=== PATIENT | male | born 1950 | race Caucasian/White ===

== ENCOUNTER 2016-08-22 12:06 | Observation (INO) | payer OTHER ==
[~2016-08-22] VITALS: Ht 172.7 cm; Wt 61.6 kg
[2016-08-22] VITALS (7 sets, daily range): BP systolic 111–132; BP diastolic 57–76; PULSE 62–73; RESP 16–20; O2SAT 97–100
[~2016-08-22 12:06] MED LIST: FLUO20CA25 PO; ROB500 PO; SILD100T PO; TRAM50TA2 PO; ZOLP12.547 PO
--- NOTE | 2016-08-22 12:36 | ED.REPORT ---
HPI-General Illness Date of Service Aug 22, 2016 ED Provider: History of Present Illness: 66-year-old male here sent in by his work, [employer] in [place], for a fit for duty exam. According to the patient a few days ago he was sent to his PCP to make sure he was okay to work. HE is not sure what is prompting his employer to do this. He presents today for this evaluation. He has vague complaints of epigastric/chest pain he says is not bothering him now. He does not complain of any pain right now. In fact he has no complaints right now. He has trouble telling me why he is here in general. He seems very confused. He does not know the names of certain body parts. He does not know the year otherwise A and O 2. He denies drug, alcohol use. He is a nonsmoker although he did smoke for 10 years many many years ago. He lives alone. Denies nausea vomiting diarrhea dysuria. His only medical history is acid reflux symptoms only medication is ranitidine. Upon my exam he is confused on certain subjects PCP Dr. Koroma Nursing Notes Stated Complaint: TESTS Chief Complaint: General Complaint Nursing Notes Reviewed: Yes Allergies: Coded Allergies: No Known Drug Allergies (Verified Allergy, Unknown, 08/22/16) Scheduled Fluoxetine (Fluoxetine) 20 Mg Capsule 20 MG PO DAILY Fluoxetine (Prozac) 10 Mg Capsule 10 MG PO DAILY Scheduled PRN Zolpidem ER (Zolpidem ER) 12.5 Mg Tablet 12.5 MG PO HS PRN PRN For Insomnia Miscellaneous Medications Ranitidine (Ranitidine) 300 Mg Tablet General Time Seen by MD: 12:36 Chief Complaint Other (confusion) Hx Obtained From: Patient Unable to Obtain Hx: Patient condition Arrived By: Walk-in Sudden in Onset?: No Onset Occurred: Onset unknown Symptom Duration: Duration unknown Recent Healthcare: No recent doctor visit Similar Sx Previous: No Past Medical History Past Medical History Notes: acid reflux Smoking History Former Smoker Review of Systems Patient denies complaints at this time, he seems quite confused He states he sometimes has an cessation which she cannot describe. He points to his lower chest/epigastric area when he says this. Unable to Obtain ROS Patient condition Full Review of Systems Cardiovascular: Reports: Chest pain Complete sys rev & neg: except as marked. Physical Exam Vital Signs Vital Signs Date Time Temp Pulse Resp B/P Pulse Ox O2 Delivery O2 Flow Rate FiO2 08/22/16 13:45 64 20 115/57 97 Room Air 08/22/16 12:12 35.9 71 18 118/68 99 Room Air Initial VS: Reviewed General/Constitutional: Well-developed, Well-nourished Head / Eyes: Atraumatic, Normocephalic, PERRL ENT: Mucous membranes moist, Conjunctiva normal, No scleral icterus Neck: Supple, Non-tender Respiratory: Breath sounds normal, Clear to auscultation, No respiratory distress Cardiovascular: Regular rate & rhythm, Heart sounds normal, Intact distal pulses Abdomen / GI: Soft, Non-tender, No guarding, No rebound, No distention Lymphatic: No lymphadenopathy Extremities: Vascular intact, Neuro intact, No swelling, No tenderness Skin: Warm, Dry, No cyanosis Neurologic: Alert, Oriented, Nonfocal Psychiatric: Mood/affect normal Neurologic: No motor deficits, No sensory deficits, CN II - XII intact, Reflexes equal bilat, Cerebellar NL, Gait NL Mental Status: Positive: Confused, Disoriented to time Psychiatric: Affect NL, Mood NL, Not suicidal, Not homicidal, No hallucinations Abnormal Thinking / Perception: Positive: Confused Interpretation & Diagnostics Interpretation & Diagnostics: CXR- IMPRESSION: No pneumonia found. IMPRESSION: Normal for age, source of confusion is not seen. Lab Results Interpretation Result Diagram: 08/22/16 1250 08/22/16 1250 Test 08/22/16 12:50 08/22/16 14:42 08/22/16 15:05 08/22/16 16:35 White Blood Count 4.7th/mm3 (3.8-10.1) Red Blood Count 4.82mil/mm3 (4.40-5.80) Hemoglobin 14.6g/dL (13.8-17.2) Hematocrit 42.9% (41.0-50.0) Mean Corpuscular Volume 89.0fL (81-100) Mean Corpuscular Hemoglobin 30.3pg (27.0-35.0) Mean Corpuscular Hemoglobin Concent 34.0% (32.0-37.0) Red Cell Distribution Width 12.8% (12.3-15.4) Platelet Count 264bil/L (150-400) Neutrophils (%) (Auto) 56.4% (40-74) Lymphocytes (%) (Auto) 30.7% (14-46) Monocytes (%) (Auto) 10.2% (4-12) Eosinophils (%) (Auto) 1.5% (0-5) Basophils (%) (Auto) 0.8% (0-3) Erythrocyte Sedimentation Rate 2mm/hr (0-30) Prothrombin Time 10.7sec (8.1-12.5) Prothromb Time International Ratio 1.00ratio Sodium Level 141mEq/L (134-144) Potassium Level 4.4mEq/L (3.5-5.2) Chloride Level 105mEq/L (97-108) Carbon Dioxide Level 24mmol/L (18-29) Blood Urea Nitrogen 15mg/dL (8-27) Creatinine 0.77mg/dL (0.76-1.27) Estimat Glomerular Filtration Rate 108mL/min (>59) Glucose Level 90mg/dL (60-99) Calcium Level 8.8mg/dL (8.5-10.1) Magnesium Level 2.2mg/dL (1.6-2.6) Total Bilirubin 0.7mg/dL (0.0-1.2) Aspartate Amino Transf (AST/SGOT) 12U/L (0-50) Alanine Aminotransferase (ALT/SGPT) 6U/L (0-44) Alkaline Phosphatase 67U/L (25-160) Troponin T < 0.010ug/L (0.0-0.011) Total Protein 6.3g/dL (6.4-8.4) Albumin 4.1g/dL (3.4-5.0) Triglycerides Level 105mg/dL (0-149) Cholesterol Level 222mg/dL (100-199) LDL Cholesterol, Calculated 134.000mg/dL (0-99) VLDL Cholesterol 21.000mg/dL HDL Cholesterol 67mg/dL (>39) Cholesterol/HDL Ratio 3.31 (0.0-4.4) Thyroid Stimulating Hormone (TSH) 1.890uIU/mL (0.450-4.500) Free Thyroxine 1.05ng/dL (0.82-1.77) Hold Amador Top Tube Received (Received) Alcohol, Quantitative < 10mg/dL (0-10) Urine Color Yellow (YELLOW) Urine Appearance Hazy (CLEAR,HAZY) Urine pH 5.5 (5.0-8.0) Urine Specific [place] 1.030 (1.003-1.035) Urine Protein Negativemg/dL (NEG,TRACE) Urine Glucose (UA) Negativemg/dL (NEGATIVE) Urine Ketones Tracemg/dL (NEGATIVE) Urine Occult Blood Negative (NEGATIVE) Urine Nitrite Negative (NEGATIVE) Urine Bilirubin Negative (NEGATIVE) Urine Urobilinogen Normalmg/dL (NORMAL) Urine Leukocyte Esterase Negative (NEGATIVE) Urine RBC 0-2/hpf (0-2) Urine WBC 0-5/hpf (0-5) Urine Epithelial Cells Occasional/hpf (NONE-MOD) Urine Crystals None seen (NONE SEEN) Urine Bacteria Few/hpf (NONE-FEW) Urine Hyaline Casts None/lpf (NONE) Urine Granular Casts None seen (NONE SEEN) Urine Waxy Casts None seen (NONE SEEN) Urine Red Blood Cell Casts None seen (NONE SEEN) Urine White Blood Cell Casts None seen (NONE SEEN) Urine Mucus Few (None Seen) Urine Trichomonas None seen (NONE SEEN) Urine Yeast None (NONE SEEN) Urinalysis Comment None Urine Culture Reflexed Not indicated Ammonia 18ug/dL (18-53) Re-Eval/Medical Decision Med Decision/Clinical Course 05/2015 PCP Pendergrast ordered chest xray (normal) for 20lb weight loss. 03/2016 negative colonoscopy ekg NSR, no previous pt resting comfortably in bed in NAD called ex . she states that he is not normally confused. he will get confused if he doesn't sleep, he works nights and will get insomnia sometimes. He claims he has been sleeping well, takes prescribed dose of ambien called his work, [employer], katherin parham in [place] states that in the last week, onset 08/12/16 that he has been confused/signs of dementia/possibly hallucinating. on admin leave since then 1500- dr Littlejohn consulted/assessed pt. agrees pt confused with no known cause of confusion. will admit for obs 1509- Dr Story accepts admission discussed admission with pt. pt seems reluctant to stay but not fighting admit at this time. Discharge & Departure Shift Change Sign-Out Patient Care Transferred: Yes Discussed Complaint(s): Yes Laboratory Evaluation: Lab evaluation discussed Imaging Studies: Imaging discussed Procedures: Results discussed Primary Impression: Altered mental status Altered mental status type: unspecified Qualified Code: R41.82 - Altered mental status, unspecified Disposition: ADMITTED TO HOSPITAL Discharge Condition All VS Reviewed: Yes Condition: Stable Referrals: Leatha Gray (PCP) EDSupervising Provider for APC: Fernando Quach DO copies to: Candis Story MD; Fernando Quach Linnea K ARNP Aug 22, 2016 12:36
[2016-08-22 13:07] LABS: BASOPHILS % (AUTO) 0.8 % (0-3); EOSINOPHILS % (AUTO) 1.5 % (0-5); MONOCYTES % (AUTO) 10.2 % (4-12); Mean Corpuscular Hemoglobin 30.3 pg (27.0-35.0); NEUTROPHILS % (AUTO) 56.4 % (40-74); Platelet Count 264 bil/L (150-400)
[2016-08-22 13:33] LABS: TROPONIN T < 0.010 ug/L (0.0-0.011)
--- NOTE | 2016-08-22 13:39 | DRSVH ---
PROCEDURE: CT BRAIN WITHOUT CONTRAST ([id number]) INDICATIONS: CONFUSION TECHNIQUE: Noncontrast 4.5 mm thick angled axial sections acquired from the foramen magnum to the vertex, with c oronal reformats. COMPARISON: None. FINDINGS: Image quality: Excellent. CSF spaces: Basal cisterns are patent. No extra-axial fluid collections. Ventricles are normal in size and shape. Brain: No midline shift. No intracranial masses or hemorrhage. Lockhart-white matter interface is norm al. Skull and face: Calvarium and visualized facial bones are intact, without suspicious lesions. Sinuses: Visualized sinuses and mastoids are clear. IMPRESSION: Normal for age, source of confusion is not seen. Dictated by: Say Tovar M.D. on 08/22/2016 at 13:37 Approved by: Say Tovar M.D. on 08/22/2016 at 13:38
[2016-08-22 13:41] LABS: Magnesium 2.2 mg/dL (1.6-2.6)
[2016-08-22 14:55] LABS: APPEARANCE,URINE HAZY (CLEAR,HAZY); COLOR,URINE YELLOW (YELLOW); OCCULT BLOOD,URINE NEGATIVE (NEGATIVE); PH,URINE 5.5 (5.0-8.0)
[2016-08-22 14:57] LABS: UROBILINOGEN,URINE NORMAL (NORMAL)
--- NOTE | 2016-08-22 14:59 | DRSVH ---
PROCEDURE: X-RAY CHEST ONE VIEW, PORTABLE ([id number]) INDICATIONS: chest pain TECHNIQUE: One view of the chest was acquired. COMPARISON: [facility], CR, XR CHEST 2VW, 05/28/2015, 15:53. [facility], C R, CHEST 2VW, 04/28/2008, 20:02. FINDINGS: Surgical changes and devices: None. Lungs and pleura: No pleural effusions or pneumothorax. Lungs are clear. Mediastinum: Mediastinal contours appear normal. Heart size is normal. Bones and chest wall: No suspicious bony lesions. Overlying soft tissues appear unremarkable. IMPRESSION: No pneumonia found. Dictated by: Say Tovar M.D. on 08/22/2016 at 14:57 Approved by: Say Tovar M.D. on 08/22/2016 at 14:58
[2016-08-22] MEDS ORDERED: Alum-Mag Hydrox-Simeth 30 mL Suspension PO PRN (15:50)
[2016-08-22] MEDS ORDERED: Polyethylene Glycol (PEG) 17 Gm Powder PO PRN (15:50)
[2016-08-22] MEDS ORDERED: Ondansetron 2 mg/mL 2 mL Inj IV PRN (15:50)
--- NOTE | 2016-08-22 16:08 | PCM.HPMED ---
Subjective Date of Service Aug 22, 2016 Primary Provider: Admitting Physician: Primary Care Physician: Leatha Gray Attending Physician: Admit Status: From the Emergency Department, 23-Hour Observation, Remote Telemetry Chief Complaint: Altered mental status History of Present Illness: This 66-year-old male who was sent to the emergency room by his work as he has been noted to have over the past 2 weeks or so using confusion. He denies any alcohol or drug use. He does live alone ex- was notified by ER Angelina and did say that this is something that is new and different for him. Denies any nausea vomiting abdominal pain alteration in bowel movements. His any headaches. Denies any recent head injuries. He is alert but oriented 2 only- to person and place but not year. 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 He notes that he drives there regularly for work. His evaluation in the emergency room include CT of head without contrast is not reveal any acute abnormalities. When asked what medications he takes he does take Ambien and actually does know the name without any coaxing by me of zolpidem. His alcohol level here is less than 10 and urine drug screen is negative. Urine dip is also negative. He has had no fevers chills. Denies cough or chest pain. Patient also denies having seen his primary care provider Dr. Gray regarding this issue. Review of Systems: All other review of systems are reviewed and are negative except for as in history of present illness. He denies having similar problem in the past. He also seems to not be very cognizant about these episodes of confusion and why we are so concerned regarding his functionality. Allergies Coded Allergies: No Known Drug Allergies (Verified Allergy, Unknown, 08/22/16) Home Medications Viagra 100 mg by mouth when necessary sexual activity Tramadol by mouth at at bedtime when necessary pain Zolpidem CR 12.5 mg by mouth at at bedtime when necessary insomnia. Methocarbamol 500 mg by mouth when necessary muscle spasm PMH History of GERD Family History Denies any family medical history for neurological diseases or psychiatric diseases Social History Hx Alcohol Use: No Smoking Status: Former Smoker Living Arrangement: Alone Exam Vital Signs Vital Sign - Last Date Time Temp Pulse Resp B/P Pulse Ox O2 Delivery O2 Flow Rate FiO2 2/10/17 12:12 35.9 71 18 118/68 99 Room Air Exam Constitutional: Slightly disheveled man in no acute distress Head: Normocephalic atraumatic Eyes: PERRLA DC EOMI Mouth: No particular abnormal lesions although dentition is not optimal Neck: Carotids 2+ over 4 without bruits Chest: Clear to auscultation Heart: Regular rate and rhythm S1-S2 without murmur Abdomen: Soft nontender bowel sounds present Extremities: No pedal edema Skin: No rashes Psychiatric: Mood and affect appear appropriate Neuro: Alert and oriented to person and place but not year. Finger to nose is intact motor and sensory are intact bilaterally Lab and Diagnostics Result Diagram: 08/22/16 1250 08/22/16 1250 X-Rays, CTs and MRIs PROCEDURE: CT BRAIN WITHOUT CONTRAST ([id number]) INDICATIONS: CONFUSION TECHNIQUE: Noncontrast 4.5 mm thick angled axial sections acquired from the foramen magnum to the vertex, with coronal reformats. COMPARISON: None. FINDINGS: Image quality: Excellent. CSF spaces: Basal cisterns are patent. No extra-axial fluid collections. Ventricles are normal in size and shape. Brain: No midline shift. No intracranial masses or hemorrhage. Lockhart-white matter interface is normal. Skull and face: Calvarium and visualized facial bones are intact, without suspicious lesions. Sinuses: Visualized sinuses and mastoids are clear. IMPRESSION: Normal for age, source of confusion is not seen. Dictated by: Say Tovar M.D. on 08/22/2016 at 13:37 Approved by: Say Tovar M.D. on 08/22/2016 at 13:38 PROCEDURE: X-RAY CHEST ONE VIEW, PORTABLE ([id number]) INDICATIONS: chest pain TECHNIQUE: One view of the chest was acquired. COMPARISON: [facility], CR, XR CHEST 2VW, 05/28/2015, 15:53. [facility], CR, CHEST 2VW, 04/28/2008, 20:02. FINDINGS: Surgical changes and devices: None. Lungs and pleura: No pleural effusions or pneumothorax. Lungs are clear. Mediastinum: Mediastinal contours appear normal. Heart size is normal. Bones and chest wall: No suspicious bony lesions. Overlying soft tissues appear unremarkable. IMPRESSION: No pneumonia found. 12-lead ECG I am unable to locate EKG at this time but according to ERs note EKG was normal sinus rhythm without any acute abnormalities Assessment & Plan # Subacute encephalopathy, present on admission Unclear etiology so far evaluation is negative Neuro proceed with checking CT of head and neck and MRI of brain without contrast Check transthoracic echocardiogram Place on telemetry Also proceed with checking TSH, T4, vitamin B12, folate, RPR, sedimentation rate Also initiate thiamine 100 mg by mouth daily # DVT prophylaxis We will place on subcutaneous Lovenox of lactic # CODE STATUS Full code Resuscitation Status: CPR: Attempt Resuscitation Time spent 60 minutes Candis Story MD Aug 22, 2016 16:08
--- NOTE | 2016-08-22 17:00 | NUR ---
Admit Pt comes via WC. IV Lt AC. Denies CP, SOB, Nausea. Some confusion noted. Must repeat questions a few times in order for pt to obey commands. Alert to self and that we are in a hospital. Otherwise difficulty answering questions. Ex is present in room. States that he is [place] and at times will state confusing things not hearing what you have said. asking pt questions at this time and pt has difficulty answering most of time.
[2016-08-22] MEDS ORDERED: RANI300T4 (17:31)
[2016-08-22] MEDS ORDERED: ZOLP6.2525 (18:24)
[2016-08-22] MEDS ORDERED: FLUO10CA30 PO (18:25)
--- NOTE | 2016-08-22 18:36 | NUR ---
Friend comments Ex / Friend was at bedside talking with pt. She states that the pt is very [place] and many times will try and guess what you said and answer accordingly; thus making people assume he is confused. Although friend did mention that he is more disoriented than his typical. She stated that he does have some slight baseline forgetfulness and small bouts of confusion when he gets tired and has for a long time now. Care continues
--- NOTE | 2016-08-22 18:43 | NUR ---
Medications Pt able to state a few of his medications but unreliable considering he is confused. Pt does states that he is supposed to be on Prozac but has stopped taking it recently. Cant recall the last time he took it but stated that he understood he needed to get off of the medication slowly and under MD supervision. Care continues
--- NOTE | 2016-08-23 02:13 | NUR ---
Neuros A&O to person and place but not time.Responses delayed and word searching noted.Cooperative and pleasant with care and no physical deficits noted.Gait steady and ambulates w/o difficulty.VSS.Denies pain.Sleeping soundly at this time and resting comfortably.Will cont. to monitor.
[2016-08-23 04:24] VITALS: BP 116/69; PULSE 66; RESP 16; O2SAT 97
[2016-08-23 05:12] VITALS: PULSE 63
[2016-08-23 07:09] LABS: Hemoglobin A1C 5.4 % (4.8-5.6)
[2016-08-23 08:38] VITALS: PULSE 75
[2016-08-23 09:45] VITALS: BP 112/68; PULSE 70; RESP 16; O2SAT 97
[2016-08-23 13:57] VITALS: BP 108/69; PULSE 57; RESP 18; O2SAT 95
--- NOTE | 2016-08-23 14:00 | NUR ---
MRI Pt taken via WC to MRI. SL Left AC. Pt understands that he is being taken to MRI. when asked if he had had an MRI in the past he said "Yes where they lay you on the table and slide you into the loud machine?" Pt continues to have periods of forgetfulness but is easily redirected. Care continues
--- NOTE | 2016-08-23 14:11 | PCM.PNMED ---
Subjective Date of Service Aug 23, 2016 Subjective Patient has mild difficulty of hearing, however, alert, oriented to himself, place, time although pt couldn't explain exactly why he came to hospital, Patient was fluent but not coherent to questions, denied SI/HI, any paranoid ideas. pt is not aware of his medical condition, denied any psychiatric illness Exam Vital Signs Vital Sign - Last Date Time Temp Pulse Resp B/P Pulse Ox O2 Delivery O2 Flow Rate FiO2 08/23/16 09:45 36.7 70 16 112/68 97 Room Air Intake and Output 08/22/16 08/22/16 08/23/16 Cumulative From/Thru 15:00 23:00 07:00 08/22/16 12:12 - 08/23/16 06:42 Intake Total 100 ml 100 ml Output Total 220 ml 220 ml Balance -120 ml -120 ml Intake Oral 100 ml 100 ml Output Urine Total 220 ml 220 ml # Bowel Movements 0 0 Exam NAD, comfortably laying down on the bed no JVD, MMM, no LAD RRR, nl s1, s2 no mrg CTAB, no w,c S,ND,NT,normoactive BS+ warm, no edema, pulses 2/2 Neuro: AAOx3 gait steady PERRLA, EOMI, symmetric face, no uvulae tongue deviation, able shrug shoulders equally able rotate neck equally on both sides FTN, dysdiadochokinesia intact, romberg negative, no pronator drift motor 5/5 throughout, sensory intact to dull touch IVs and Medications Medications Reviewed: Medications were reviewed in detail Lab and Diagnostics Result Diagram: 08/22/16 1250 08/22/16 1250 X-Rays, CTs and MRIs PROCEDURE: CT BRAIN WITHOUT CONTRAST ([id number]) INDICATIONS: CONFUSION TECHNIQUE: Noncontrast 4.5 mm thick angled axial sections acquired from the foramen magnum to the vertex, with coronal reformats. COMPARISON: None. FINDINGS: Image quality: Excellent. CSF spaces: Basal cisterns are patent. No extra-axial fluid collections. Ventricles are normal in size and shape. Brain: No midline shift. No intracranial masses or hemorrhage. Lockhart-white matter interface is normal. Skull and face: Calvarium and visualized facial bones are intact, without suspicious lesions. Sinuses: Visualized sinuses and mastoids are clear. IMPRESSION: Normal for age, source of confusion is not seen. Dictated by: Say Tovar M.D. on 08/22/2016 at 13:37 Approved by: Say Tovar M.D. on 08/22/2016 at 13:38 PROCEDURE: X-RAY CHEST ONE VIEW, PORTABLE ([id number]) INDICATIONS: chest pain TECHNIQUE: One view of the chest was acquired. COMPARISON: [facility], CR, XR CHEST 2VW, 05/28/2015, 15:53. [facility], CR, CHEST 2VW, 04/28/2008, 20:02. FINDINGS: Surgical changes and devices: None. Lungs and pleura: No pleural effusions or pneumothorax. Lungs are clear. Mediastinum: Mediastinal contours appear normal. Heart size is normal. Bones and chest wall: No suspicious bony lesions. Overlying soft tissues appear unremarkable. IMPRESSION: No pneumonia found. 12-lead ECG I am unable to locate EKG at this time but according to ERs note EKG was normal sinus rhythm without any acute abnormalities Assessment & Plan 66yo M w/ no significant medical problem presented with subacute onset of worsening confusion. 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 pt stated he first went to the clinic but redirected him to ED. as per ex-, pt was on detention antipsychotic prozac over 30yrs for depression/anxiety, prior heavy drinker 30yrs ago. pt has significant Fhx of advanced Alzheimer disease both parents currently, in the state that they don't recognizing him. upon reviewing, clinic chart,as per PCP LEI Duggan, spoke to supervisor shipping Deandre at his work place, pt showed confusion, disorientation, hallucination, so he concerned about his health and safety of people at work, sent him to PCP for further evaluation. PCP thinks that this is not his baseline, redirected him to ED although pt didn't seem to understand this. #Encephalopathy, POA, TSH/RPR/vitB12 WNL, CTH normal for age, neurologically intact, ddx: worsening dementia vs psychiatric disease. -consulted today, appreciate insignt -will finish MRI brain today -no further invasive w/u such as LP given no acuity. # DVT prophylaxis We will place on subcutaneous Lovenox of lactic # CODE STATUS Full code dispo:it seems there is no acuity of current presentation, likely d/c home today or tomorrow with good PCP/psychiatric eval VTE Mechanical Devices: Intermittant Pneumatic CD Resuscitation Status: CPR: Attempt Resuscitation Time spent 35 minutes Kristi Gómez MD Aug 23, 2016 12:11
--- NOTE | 2016-08-23 14:35 | DRSVH ---
[facility] [address] [place] [address] Echocardiogram Report Name: LADARIUS FERRO te: 08/23/2016 Height: 68 in Hospital Exam Location: [facility] Weight: 136 lb Gender: Male BSA: 1.7 m2 : 1950 Age: 66 yrs BP: 116/69 mmHg Reason For Study: Stroke Ordering Physician: HOSPITALIST [facility] Performed By: Pedro Culp Referring Physician: FABRICE HARP Interpretation Summary 1) Normal left ventricular size, wall motion, and systolic function (EF 65- 70%). 2) Normal right ventricular size and function. 3) No significant valvular abnormalities. 4) No prior Echo available for comparison. No cardiac cause of stroke identified on this transthoracic echo. Procedure: A two-dimensional transthoracic echocardiogram with color flow and Doppler was performed. The study quality was technically adequate. There is no prior echocardiogram noted for this patient. The patient was in normal sinus rhythm during the exam. Left Ventricle: The left ventricle is normal in size. Left ventricular wall thickness is at the upper limits of normal. The ejection fraction is estimated to be 65-70%. Left ventricular systolic function is normal. Left ventricular wall motion is normal. Assessment of diastolic parameters indicates normal left ventricular diastolic function and normal filling pressures. Right Ventricle: The right ventricle is normal in size, thickness and function. Atria: Both atria are normal in size. The interatrial septum is intact with no evidence for an atrial septal defect. Mitral Valve: The mitral valve is normal. There is no mitral regurgitation noted. Aortic Valve: The aortic valve is normal in structure and function. There is no aortic valve stenosis. No aortic regurgitation is present. Tricuspid Valve: The tricuspid valve is normal. Pulmonary artery pressures cannot be estimated because of the lack of a measurable TR jet velocity. Pulmonic Valve: The pulmonic valve is not well visualized. Great Vessels: The aortic root is normal size. The ascending aorta could not be visualized. The pulmonary artery is not well visualized, but is probably normal size. The IVC is of normal diameter and collapses greater than 50% with a sniff. This suggests a low right atrial pressure of 3 mm Hg. Pericardium/ Pleura There is no pericardial effusion. There is no pleural effusion. MMode/2D Measurements & Calculations LVIDd: 3.9 cm RA long axis LVOT diam LVIDs: 2.6 cm LA A2 area: 12.0 cm FS: 33.5 % LA A4 area: 14.2 cm RA area Ao root diam IVSd: 1.1 cm LA length (vol): 4.5 cm : 3.2 cm LVPWd: 0.97 cm LA vol: 32.1 ml : 12.4 cm LA vol index RA vol: 27.2 ml RA : 15.7 mm2 IVC diam: 1.7 cm LV rutherford. diameter/BSA LV sys. diameter/BSA RVD1 (basal) TAPSE: 2.5 cm (cm/m^2): 2.2 (cm/m^2): 1.5 Doppler Measurements & Calculations Ao V2 max: 118.9 cm/secMV E max jose miguel MV E/A: 1.4 PA V2 max Ao max P.7 mmHg : 64.4 cm/sec Med Peak E' Jose Miguel : 88.9 cm/sec Ao mean P.0 mmHg MV A max jose miguel PA mean PG LVOT Max Jose Miguel : 45.4 cm/sec E/E' med: 7.6 : 1.7 mmHg : 85.8 cm/sec Lat Peak E' Jose Miguel MEENU(I,D): 3.6 cm E/E' lat: 6.6 sev ratio: 0.80 E/e' average: 7.1 MV dec time: 0.21 sec Ao V2 mean LV V1 max PG PA V2 mean : 80.9 cm/sec : 62.1 cm/sec Ao V2 VTI: 22.4 cmLV V1 VTI: 17.9 cm PA pr(Accel) : 5.8 mmHg MEENU(V,D): 3.2 cm2 MEENU indexed to BSA (cm^2/m^2): 2.1 Reading Physician:02:34 PM
--- NOTE | 2016-08-23 15:02 | NUR ---
Cognition No strength deficits noted. When speaking loudly so that pt can hear pt easily answers questions but does have a slight delay and word searching in answers. Pt has been alert and oriented mostly. Has issues stating the month at times but is able to states self, place, situation, year. Pt states that he does have some disorientation at times. Pt also told recreational therapy technician at bedside after the doctor left the room that "I couldn't understand what that doctor was saying?" Language barrier may be an issue here as well. Manager In Home did note that pt attempted to void in garbage but was easily redirected to toilet once. She also seemed to have to remind pt to use restroom and to drink water. Manager In Home no longer at bedside; pt emily alarm in place. Ambulated with steady gait independently but is fall risk related to confusion. Care continues. Pt remains in MRI at this time.
--- NOTE | 2016-08-23 15:49 | DRSVH ---
PROCEDURE: MRI STROKE PROTOCOL ([id number]) Pre- and post-contrast brain MRI, non-contrast brain MR angiogram, pre- and postcontrast neck MR tricia ogram INDICATIONS: Enecephalopathy, unclear etiology TECHNIQUE: Brain: Noncontrast axial T1 spin echo, axial T2 fast spin echo, sagittal and axial FLAIR, coronal T2 fast spin echo, axial gradient echo, axial diffusion and ADC through the brain. After the administr ation of contrast, axial 3D VIBE of the cranial vasculature and brain. Brain MRA: Non-contrast 3-D time of flight MR angiogram, with multiple fpqkhxl-vpfzfvmml-vodlimpfap (MIP) reformats performed. Neck MRA: Axial and sagittal TruFISP through the neck. Coronal dynamic MR angiogram during administ ration of contrast in the arterial and venous phases, with 3-dimenstional uwuveei-ajumtnwhm-jcaczxlfu n (MIP) reformats constructed from subtraction images. COMPARISON: [facility], CT, CT BRAIN WO CON, 08/22/2016, 13:10. FINDINGS: Image quality: Excellent. BRAIN: CSF spaces: Ventricles are normal in size and shape. Basal cisterns are patent. No extra-axial flu id collections. Brain: No intracranial bleeds or mass effects. There is mild diffuse cerebral volume loss. Mild deg ree of patchy hilar signal within the periventricular and subcortical white matter, consistent with s mall vessel ischemic disease. Lockhart-white matter interface is normal. Diffusion weighted images show no acute ischemic insults. Brainstem appears normal. Normal intravascular flow voids are present. No abnormal intracranial enhancement. Skull and face: Calvarial marrow signal is normal. Orbits appear normal. Sinuses: Left mastoidectomy. Sinuses and mastoids are otherwise clear. BRAIN MR ANGIOGRAM: Anterior circulation: Intracranial internal carotid arteries are normal in size and enhancement. Th e flow within the paired anterior cerebral arteries is normal and symmetric. The flow within the mid dle cerebral arteries is normal and symmetric. The anterior communicating artery is seen. No stenos es, occlusions, or aneurysms. Posterior circulation: The visualized portions of the vertebral arteries demonstrate normal caliber, and join to form a normal appearing basilar artery. The flow within the posterior cerebral arteries is normal and symmetric. No stenoses, occlusions, or aneurysms. NECK MR ANGIOGRAM: Carotids: Great vessels demonstrate a conventional anatomy as they arise from the aortic arch. The origins of the common carotid arteries appear patent. The calibers and courses of both common caroti d arteries are normal. The bifurcation regions appear normal bilaterally. The internal carotid precious usama demonstrate normal course and caliber. Posterior circulation: The right vertebral artery origin is patent, and the left vertebral artery or igin is not well-seen. More superior portions of both vertebral arteries demonstrate normal course an d caliber, and join to form a normal appearing basilar artery. Miscellaneous: Subclavian arteries appear patent. Pre-contrast images through the neck show no soft tissue abnormalities. IMPRESSION: BRAIN MRI: 1. Mild volume loss and small vessel ischemic disease. 2. No acute process. No recent infarct. BRAIN MR ANGIOGRAM: Negative cerebral MR angiography. NECK MR ANGIOGRAM: 1. Patent bilateral internal carotid arteries. 2. Patent right vertebral artery. Suboptimally visualized left vertebral artery origin. Left vertebra l artery is otherwise patent. The estimate of stenosis included in the report of the imaging study was calculated using the NASCET method Dictated by: Chetan Cardenas M.D. on 08/23/2016 at 14:43 Approved by: Chetan Cardenas M.D. on 08/23/2016 at 14:47
--- NOTE | 2016-08-23 17:30 | NUR ---
miscommunication with pt and family some miscommunication with pt and family, friend, and MD. MD states pt was ok to discharge before he realized that pt was still having disorientation such as attempting to void in waste basket. Friend came to pick pt up but staff advocated for pt in regards to the fact that pt is not safe to go home to where he live alone. MD now would like pt to stay another night, suggested possible psych eval, and Social workers have not seen pt at this time either. Pt is now wanting to leave AMA but at this time is not cognitive enough to make safe choices for himself. MD suggest pt stay another night. Pt is upset about this. Friend Yadira has offered to take pt home tonight but pt will be left alone as she must go to work and is his exwife. Daughter Yeimi was called to update her in regards to situation. Yeimi was informed of new information and it was suggested that she and her brother come down tomorrow and meet with MD, SW, and Pt in order to decide a good safe plan for DC. Daughter Yeimi states that she will be here tomorrow (Thursday) to speak with MDs, SW, and father in order to figure out what is going on and devise a safe plan for DC. Daughter states that she will contact Son and attempt to arrange for him to come as well although this may not be possible. Care continues Addendum: 08/23/16 at 1837 by JAYASHREE LOCKETT RN Leo Jalloh spoke with pt and told him that we tols her that he tried to void in waste basket. Pt was very defensive about this and upset that we would say such a thing. Pt attempted to make a reason for what he did was was at a loss for words. Advised pt that it is ok, sometimes people misinterpret what is going on. Pt has now calmed down and has been appropriate in room. Bed alarm n use. Pt is impulsive at times and gets up out of bed with no goal. Pt understands the plan for tomorrow. Care continues
--- NOTE | 2016-08-23 18:37 | NUR ---
BEAVER Pt continues to be slightly disoriented, word searching and delayed answers today. Seems much more oriented than yesterday. Much of this seems to be a hearing deficit. If staff speaks very loudly and clearly pt seem more oriented than when staff talk quietly. Pt is very BEAVER in Left ear. Advised staff to speak into Right ear when talking and me where pt can read lips. Care continues
[2016-08-23 19:18] VITALS: BP 106/64; PULSE 74; RESP 18; O2SAT 98
--- NOTE | 2016-08-24 03:33 | NUR ---
LOC Patient continues to exhibit s/s of disorientation. Patient asleep for much of shift, however recently awoke to stand at foot of bed staring at wall. Nurses' aide able to coax back to bed. Alert to self, able to make needs known, easily redirected. Denies pain and or discomfort at this time. Sitter outside of room.
[2016-08-24 06:50] VITALS: BP 106/61; PULSE 78; RESP 16; O2SAT 96
--- NOTE | 2016-08-24 07:59 | PCM.DIMED ---
Discharge Instructions Date of Service Aug 24, 2016 Dates of Hospitalization Aug 22, 2016 at 16:36 Discharge Diagnosis Discharge Diagnosis Probable early dementia Patient Instructions You were hospitalized with concern of forgetfulness, hallucinations, disorientation from your family/people at your work place. All the workups in the hospital didn't suggest any organic causes that can explain your confusion. Please follow-up with your doctor in following week for assessment and treatment. Follow-up plan Please follow up with your doctor in following week. Follow-up Provider: Leatha Gray Follow-up with PCP in: 1 week Kristi Gómez MD Aug 24, 2016 07:59
--- NOTE | 2016-08-24 09:08 | NUR ---
Social Work Note: Continued Discharge Planning Data& Assessment: Per RN, pt family has concerns regarding pt mentation and medical condition. SW spoke with pt ex who confirmed pt daughter Yeimi will be arriving here at the hospital around 10:30-11:00am this morning. SW and pt family agreed on meeting in pt's room at 11:15am to discuss discharge planning and obtain clarification regarding pt medical status from MD per pt family request. SW confirmed with MD that he is able to meet with SW and pt family at 11:15am this morning. Per MD, pt is getting closer to being medically ready for discharge but could benefit from being seen by psych prior to discharge. SW confirmed with [facility] that they have received the order and verbal request from MD for pt to be seen today by psych. SW to follow up with MD, pt family, and psych regarding pt care and discharge planning. SW to continue to follow. Plan: Anticipated discharge home via POV when medically cleared for discharge. SW to follow up with MD, pt family, and psych regarding pt care and discharge planning. SW to continue to follow. BRANDEN Carballo
--- NOTE | 2016-08-24 12:04 | NUR ---
Social Work Note: Initial Assessment Data& Assessment: EMR reviewed. SW met with pt ex- and pt daughter at bedside to discuss discharge planning, SW role explained. Smith Downs is a 66 year old male under observation for altered mental status beginning on 08/22/2016. Pt has [employer] out of state insurance coverage. Pt sees LEI Sweeney for primary care. Pt daughter explained that pt does not have his hearing aids which could be contributing to ongoing confusion. Pt daughter provided baseline information. Pt lives in [place], alone in a one story home with three steps to enter the home. Pt drives and works at this time. Pt does not use any DME at baseline. Pt is independent with ADL's including medication management. Pt has never had Home Health services or been to a SNF. Pt does not have LTC insurance and does not have VA benefits. Pt and pt daughter provided with [employer] paperwork to complete and provide the hospital with a copy when possible. Per pt daughter request, pt was also provided with number for [facility] for assistance in signing up for Medicare insurance now that pt is 66 years of age. Pt was also provided with [facility] Community Resource Guide to reference in case that number is lost and for further community resource information. Per pt daughter, pt makes approximately $5,000 a month in pension and would be overqualified for Medicaid eligibility. Per pt daughter, pt is close to his baseline mentation and believes it is a difference in communication style and his lack of hearing aids that contributes to his confusion. However, Pt daughter and ex concerned that his employer has noticed a difference in mentation at this point in time. Per [facility], psych MD plans to see pt during lunch time to day prior to pt discharge. Pt daughter plans to take pt home tonight and stay until tomorrow. Pt ex plans to arrange follow up PCP appointment for pt and transport him to his appointment. Pt and pt daughter denies any other needs. No other needs identified. Plan: Per pt is medically ready for discharge home with daughter via POV pending psych evaluation. Pt provided with community resources. Pt ex plans to arrange follow up PCP appointment for pt and transport him to his appointment. Pt and pt daughter denies any other needs. No other needs identified. BRANDEN Carballo Addendum: 08/24/16 at 1220 by MING FANG Amended: Links added.
--- NOTE | 2016-08-24 14:00 | NUR ---
DC Pt discharged to home with daughter after Psych evaluation was completed. All discharge instructions have been reviewed and daughter understands. Daughter states that she understands that the pt is to NOT drive until medically cleared by his primary care provider or a neurologist. Daughter understands that pt is not safe if left alone. Per daughter she will be driving pt home and a friend will take him car away to someone else's house out of sight out of mind. Pt ambulates out of hospital independently with daughter at side. Daughter to take pt home and stay with pt.
--- NOTE | 2016-08-24 14:22 | PCM.DC.MED ---
Discharge Summary Date of Service Aug 24, 2016 Dates of Hospitalization Date of Hospital Admission Aug 22, 2016 at 16:36 Date of Discharge: Aug 24, 2016 Providers: Admitting Physician: Candis Story MD Primary Care Physician: Leatha Gray Attending Physician: Candis Story MD Diagnosis at Time of Discharge Diagnosis at Time of Discharge Probable early dementia Consultations Psychiatry, Procedures XRay, CTs & MRIs PROCEDURE: MRI STROKE PROTOCOL ([id number]) Pre- and post-contrast brain MRI, non-contrast brain MR angiogram, pre- and postcontrast neck MR angiogram INDICATIONS: Enecephalopathy, unclear etiology TECHNIQUE: Brain: Noncontrast axial T1 spin echo, axial T2 fast spin echo, sagittal and axial FLAIR, coronal T2 fast spin echo, axial gradient echo, axial diffusion and ADC through the brain. After the administration of contrast, axial 3D VIBE of the cranial vasculature and brain. Brain MRA: Non-contrast 3-D time of flight MR angiogram, with multiple maximum- intensity-projection (MIP) reformats performed. Neck MRA: Axial and sagittal TruFISP through the neck. Coronal dynamic MR angiogram during administration of contrast in the arterial and venous phases, with 3-dimenstional nixrogd-tgzyytcsj-fywqjgdvde (MIP) reformats constructed from subtraction images. COMPARISON: [facility], CT, CT BRAIN WO CON, 08/22/2016, 13:10. FINDINGS: Image quality: Excellent. BRAIN: CSF spaces: Ventricles are normal in size and shape. Basal cisterns are patent. No extra-axial fluid collections. Brain: No intracranial bleeds or mass effects. There is mild diffuse cerebral volume loss. Mild degree of patchy hilar signal within the periventricular and subcortical white matter, consistent with small vessel ischemic disease. Lockhart- white matter interface is normal. Diffusion weighted images show no acute ischemic insults. Brainstem appears normal. Normal intravascular flow voids are present. No abnormal intracranial enhancement. Skull and face: Calvarial marrow signal is normal. Orbits appear normal. Sinuses: Left mastoidectomy. Sinuses and mastoids are otherwise clear. BRAIN MR ANGIOGRAM: Anterior circulation: Intracranial internal carotid arteries are normal in size and enhancement. The flow within the paired anterior cerebral arteries is normal and symmetric. The flow within the middle cerebral arteries is normal and symmetric. The anterior communicating artery is seen. No stenoses, occlusions, or aneurysms. Posterior circulation: The visualized portions of the vertebral arteries demonstrate normal caliber, and join to form a normal appearing basilar artery. The flow within the posterior cerebral arteries is normal and symmetric. No stenoses, occlusions, or aneurysms. NECK MR ANGIOGRAM: Carotids: Great vessels demonstrate a conventional anatomy as they arise from the aortic arch. The origins of the common carotid arteries appear patent. The calibers and courses of both common carotid arteries are normal. The bifurcation regions appear normal bilaterally. The internal carotid arteries demonstrate normal course and caliber. Posterior circulation: The right vertebral artery origin is patent, and the left vertebral artery origin is not well-seen. More superior portions of both vertebral arteries demonstrate normal course and caliber, and join to form a normal appearing basilar artery. Miscellaneous: Subclavian arteries appear patent. Pre-contrast images through the neck show no soft tissue abnormalities. IMPRESSION: BRAIN MRI: 1. Mild volume loss and small vessel ischemic disease. 2. No acute process. No recent infarct. BRAIN MR ANGIOGRAM: Negative cerebral MR angiography. NECK MR ANGIOGRAM: 1. Patent bilateral internal carotid arteries. 2. Patent right vertebral artery. Suboptimally visualized left vertebral artery origin. Left vertebral artery is otherwise patent. The estimate of stenosis included in the report of the imaging study was calculated using the NASCET method Dictated by: Chetan Cardenas M.D. on 08/23/2016 at 14:43 Approved by: Chetan Cardenas M.D. on 08/23/2016 at 14:47 PROCEDURE: CT BRAIN WITHOUT CONTRAST ([id number]) INDICATIONS: CONFUSION TECHNIQUE: Noncontrast 4.5 mm thick angled axial sections acquired from the foramen magnum to the vertex, with coronal reformats. COMPARISON: None. FINDINGS: Image quality: Excellent. CSF spaces: Basal cisterns are patent. No extra-axial fluid collections. Ventricles are normal in size and shape. Brain: No midline shift. No intracranial masses or hemorrhage. Lockhart-white matter interface is normal. Skull and face: Calvarium and visualized facial bones are intact, without suspicious lesions. Sinuses: Visualized sinuses and mastoids are clear. IMPRESSION: Normal for age, source of confusion is not seen. Dictated by: Say Tovar M.D. on 08/22/2016 at 13:37 Approved by: Say Tovar M.D. on 08/22/2016 at 13:38 PROCEDURE: X-RAY CHEST ONE VIEW, PORTABLE ([id number]) INDICATIONS: chest pain TECHNIQUE: One view of the chest was acquired. COMPARISON: [facility], CR, XR CHEST 2VW, 05/28/2015, 15:53. [facility], CR, CHEST 2VW, 04/28/2008, 20:02. FINDINGS: Surgical changes and devices: None. Lungs and pleura: No pleural effusions or pneumothorax. Lungs are clear. Mediastinum: Mediastinal contours appear normal. Heart size is normal. Bones and chest wall: No suspicious bony lesions. Overlying soft tissues appear unremarkable. IMPRESSION: No pneumonia found. ECG 12 Lead normal sinus rhythm without any acute abnormalities Brief History This 66-year-old male who was sent to the emergency room by his work as he has been noted to have over the past 2 weeks or so using confusion. He denies any alcohol or drug use. He does live alone ex- was notified by STEFANO Alfaro and did say that this is something that is new and different for him. Denies any nausea vomiting abdominal pain alteration in bowel movements. His any headaches. Denies any recent head injuries. He is alert but oriented 2 only- to person and place but not year. 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 He notes that he drives there regularly for work. His evaluation in the emergency room include CT of head without contrast is not reveal any acute abnormalities. When asked what medications he takes he does take Ambien and actually does know the name without any coaxing by me of zolpidem. His alcohol level here is less than 10 and urine drug screen is negative. Urine dip is also negative. He has had no fevers chills. Denies cough or chest pain. Patient also denies having seen his primary care provider Dr. Gray regarding this issue. Hospital Course 66yo M w/ no significant medical problem presented with subacute onset of worsening confusion. Collateral info obtained from primary caregiver: [phone], Yeimi daughter ex- [phone] pt has been increasingly forgetful, then for the past 4-5months, pt seemed to show difficulty of functioning at his work, which seems to be initial reason why he was sent for further w/u from his payroll supervisor. pt stated he first went to the clinic but redirected him to ED. as per ex-, pt was on longterm antipsychotic prozac over 30yrs for depression/anxiety, prior heavy drinker 30yrs ago. pt has significant Fhx of advanced Alzheimer disease both parents currently, in the state that they don't recognizing him. upon reviewing, clinic chart,as per PCP LEI Duggan, spoke to payroll supervisor Deandre at his work place, pt showed confusion, disorientation, hallucination, so he concerned about his health and safety of people at work, sent him to PCP for further evaluation. PCP thinks that this is not his baseline, redirected him to ED although pt didn't seem to understand this. #Encephalopathy, POA, TSH/RPR/vitB12 WNL, CTH normal for age, neurologically intact, MR stroke protocol was unremarkable. TTE was unremarkable. pt was also consulted Psychiatry , agreed that it's more likely dementia, recommended no self-driving. Given no acuity of condition, negative workups, appropriate family support, pt deemed to be safe to go home, with daughter who will stay with family for tonight to ensure patient's safety. Patient and Family were asked to finish further evaluation with primary doctor on following week. It is probably appropriate for patient to stay away from his work until pt has final diagnosis. Exam Vital Signs (Last) Date Time Temp Pulse Resp B/P Pulse Ox O2 Delivery O2 Flow Rate FiO2 08/24/16 06:50 36.6 78 16 106/61 96 Room Air Exam NAD, comfortably laying down on the bed no JVD, MMM, no LAD RRR, nl s1, s2 no mrg CTAB, no w,c S,ND,NT,normoactive BS+ warm, no edema, pulses 2/2 Neuro: AAOx3 gait steady PERRLA, EOMI, symmetric face, no uvulae tongue deviation, able shrug shoulders equally able rotate neck equally on both sides FTN, dysdiadochokinesia intact, romberg negative, no pronator drift motor 5/5 throughout, sensory intact to dull touch Test 08/22/16 12:50 08/22/16 14:42 08/22/16 15:05 08/22/16 16:35 White Blood Count 4.7th/mm3 (3.8-10.1) Red Blood Count 4.82mil/mm3 (4.40-5.80) Hemoglobin 14.6g/dL (13.8-17.2) Hematocrit 42.9% (41.0-50.0) Mean Corpuscular Volume 89.0fL (81-100) Mean Corpuscular Hemoglobin 30.3pg (27.0-35.0) Mean Corpuscular Hemoglobin Concent 34.0% (32.0-37.0) Red Cell Distribution Width 12.8% (12.3-15.4) Platelet Count 264bil/L (150-400) Neutrophils (%) (Auto) 56.4% (40-74) Lymphocytes (%) (Auto) 30.7% (14-46) Monocytes (%) (Auto) 10.2% (4-12) Eosinophils (%) (Auto) 1.5% (0-5) Basophils (%) (Auto) 0.8% (0-3) Erythrocyte Sedimentation Rate 2mm/hr (0-30) Prothrombin Time 10.7sec (8.1-12.5) Prothromb Time International Ratio 1.00ratio Sodium Level 141mEq/L (134-144) Potassium Level 4.4mEq/L (3.5-5.2) Chloride Level 105mEq/L (97-108) Carbon Dioxide Level 24mmol/L (18-29) Blood Urea Nitrogen 15mg/dL (8-27) Creatinine 0.77mg/dL (0.76-1.27) Estimat Glomerular Filtration Rate 108mL/min (>59) Glucose Level 90mg/dL (60-99) Calcium Level 8.8mg/dL (8.5-10.1) Magnesium Level 2.2mg/dL (1.6-2.6) Total Bilirubin 0.7mg/dL (0.0-1.2) Aspartate Amino Transf (AST/SGOT) 12U/L (0-50) Alanine Aminotransferase (ALT/SGPT) 6U/L (0-44) Alkaline Phosphatase 67U/L (25-160) Troponin T < 0.010ug/L (0.0-0.011) Total Protein 6.3g/dL (6.4-8.4) Albumin 4.1g/dL (3.4-5.0) Triglycerides Level 105mg/dL (0-149) Cholesterol Level 222mg/dL (100-199) LDL Cholesterol, Calculated 134.000mg/dL (0-99) VLDL Cholesterol 21.000mg/dL HDL Cholesterol 67mg/dL (>39) Cholesterol/HDL Ratio 3.31 (0.0-4.4) Thyroid Stimulating Hormone (TSH) 1.890uIU/mL (0.450-4.500) Free Thyroxine 1.05ng/dL (0.82-1.77) Hold Amador Top Tube Received (Received) Alcohol, Quantitative < 10mg/dL (0-10) Urine Color Yellow (YELLOW) Urine Appearance Hazy (CLEAR,HAZY) Urine pH 5.5 (5.0-8.0) Urine Specific Terral 1.030 (1.003-1.035) Urine Protein Negativemg/dL (NEG,TRACE) Urine Glucose (UA) Negativemg/dL (NEGATIVE) Urine Ketones Tracemg/dL (NEGATIVE) Urine Occult Blood Negative (NEGATIVE) Urine Nitrite Negative (NEGATIVE) Urine Bilirubin Negative (NEGATIVE) Urine Urobilinogen Normalmg/dL (NORMAL) Urine Leukocyte Esterase Negative (NEGATIVE) Urine RBC 0-2/hpf (0-2) Urine WBC 0-5/hpf (0-5) Urine Epithelial Cells Occasional/hpf (NONE-MOD) Urine Crystals None seen (NONE SEEN) Urine Bacteria Few/hpf (NONE-FEW) Urine Hyaline Casts None/lpf (NONE) Urine Granular Casts None seen (NONE SEEN) Urine Waxy Casts None seen (NONE SEEN) Urine Red Blood Cell Casts None seen (NONE SEEN) Urine White Blood Cell Casts None seen (NONE SEEN) Urine Mucus Few (None Seen) Urine Trichomonas None seen (NONE SEEN) Urine Yeast None (NONE SEEN) Urinalysis Comment None Urine Culture Reflexed Not indicated Ammonia 18ug/dL (18-53) Hemoglobin A1c 5.4% (4.8-5.6) Rapid Plasma Reagin Non reactive (Non Reactive) Discharge Medications Discharge Medications Fluoxetine (Fluoxetine) 20 Mg Capsule 20 MG PO DAILY (Reported) Fluoxetine (Prozac) 10 Mg Capsule 10 MG PO DAILY (Reported) As needed Zolpidem ER (Zolpidem ER) 12.5 Mg Tablet 12.5 MG PO HS PRN PRN For Insomnia ( Reported) Miscellaneous Medications Ranitidine (Ranitidine) 300 Mg Tablet (Reported) Followup Plan Disposition: home Follow-up plan Please follow up with your doctor in following week. Patient Instructions You were hospitalized with concern of forgetfulness, hallucinations, disorientation from your family/people at your work place. All the workups in the hospital didn't suggest any organic causes that can explain your confusion. Please follow-up with your doctor in following week for assessment and treatment. Follow-up Provider: Leatha Gray Follow-up with PCP in: 1 week Time spent 65min Kristi Gómez MD Aug 24, 2016 14:22
--- NOTE | 2016-08-24 16:12 | NUR ---
Social Work Note: Discharge Data& Assessment: Per , pt is medically ready to discharge home with daughter via POV. Smith Downs is a 66 year old male under observation for altered mental status beginning on 08/22/2016. Per , pt is medically improved and cleared to discharge. Per , Psych MD agrees that his confusion is likely due to dementia and pt is not to self drive until cleared by PCP. Pt family arranging PCP appointment and pt ex plans to transport pt to the appointment. Pt, pt ex , and pt daughter Yeimi denies any other needs at this time. No other discharge needs identified. All updated and agreeable to the plan. Plan: Per , pt is medically ready to discharge home with daughter via POV and to follow up with his PCP. Pt, pt ex , and pt daughter Yeimi denies any other needs at this time. No other discharge needs identified. All updated and agreeable to the plan. BRANDEN Carballo
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
[2016-08-26 07:14] LABS: Vitamin B12 291 pg/mL (211-946)
== END 2016-08-24 14:00 | disposition home or self-care (01) ==
LOC: SED 12:06 → OSC 16:36
PROVIDERS: ADMIT Specialist; ATTEND Specialist
DX: R41.82 Altered mental status, unspecified (principal); G93.40 Encephalopathy, unspecified
CPT/HCPCS: 36415; 70450; 70549; 70553; 71010; 80053; 80061; 81000; 82140; 82607; 82746; 82948; 83036; 83735; 84439; 84443; 84484; 85025; 85610; 85651; 86592; 93005; 99285; A9585; C8929; G0378; G0480; J1650